=== PATIENT | female | born 1955 | race Caucasian/White ===

== ENCOUNTER 2017-01-06 07:13 | Day surgery (SDC) | payer BC ==
[2017-01-01 15:16] VITALS: BMI 33.3
[~2017-01-06 07:13] MED LIST: LACTATED RINGERS 1,000 ML IV SCH
[2017-01-06 07:53] VITALS: RESP 16; TEMP 98.3
[2017-01-06] MEDS ORDERED: MIDAZOLAM 2 MG/2 ML VIAL ONE (08:02)
[2017-01-06] MEDS ORDERED: PROPOFOL 10 MG/ML 20 ML VIAL IV ONE (08:02)
[2017-01-06] MEDS ORDERED: LIDOCAINE 1% INJ 10MG/ML (20 ML MDV) ONE (08:02)
[2017-01-06] MEDS ORDERED: fentaNYL (PF) 50 MCG/ML 2 ML AMP ONE (08:02)
--- NOTE | 2017-01-06 08:28 | P.PCN ---
Date of Procedure: 01/06/17 Preoperative Diagnosis: Postoperative Diagnosis: Procedure(s) Performed: Brief history: Patient is a pleasant 61-year-old white female, scheduled for an elective upper endoscopy as well as colonoscopy as a part of evaluation of long-standing history of GERD and intermittent rectal bleeding. Procedure performed: Esophagogastroduodenoscopy with biopsy Colonoscopy Preoperative diagnosis: GERD Intermittent rectal bleeding Anesthesia: MAC Procedure: After informed consent was obtained from the patient was brought into the endoscopy unit and IV sedation was administered by anesthesia under continuous monitoring. Initially upper endoscopy was done. The Olympus GF 160 video endoscope was inserted inserted into the mouth and esophagus intubated without any difficulty and was gradually advanced into the stomach and duodenum and carefully examined. The bulb and second part of the duodenum appeared normal. The scope was then withdrawn into the stomach adequately insufflated with air and upon careful examination the antrum had mild gastritis and biopsies were done from this area. The body, cardia and fundus appeared normal. The scope was then withdrawn into the esophagus. Small sliding Hiatal hernia noted. The GE junction was located at 38 cm to the incisors. It appeared regular with 2 superficial erosions consistent with LA grade B reflux esophagitis. Also there was a 1 mm segment of Varner's-appearing mucosa which was also biopsied. Rest of the esophagus appeared normal. Patient tolerated the procedure well. At this time the patient continued to remain sedation. Initial digital rectal examination was normal. Olympus CF 160 video colonoscope was then inserted into the rectum and gradually advanced to the cecum without any difficulty. Careful examination was performed as the scope was gradually being withdrawn. The prep was excellent. The cecum, ascending colon, transverse colon, descending colon, sigmoid colon and rectum appeared normal. Retroflexion was performed in the rectum and small internal hemorrhoids were noted. Patient tolerated the procedure well. Impression: 1. Upper endoscopy revealed mild antral gastritis, small hiatal hernia and LA grade B reflux esophagitis. Questionable short segment Varner's esophagus status post biopsy 2. Colonoscopy revealed small internal hemorrhoids. No evidence of colorectal neoplasia. Recommendations: Findings of this examination were discussed with the patient as well as her family. She was advised to follow with the biopsy results. If the biopsy confirms the presence of Varner's esophagus then she can have a repeat upper endoscopy in 2 years. In the meantime she will continue with her current acid suppressive therapy and follow antireflux measures. She was advised to have a repeat screening colonoscopy in 10 years. Implants: Indications for Procedure: Operative Findings: Description of Procedure:
[2017-01-06 09:06] VITALS: BP 124/69; PULSE 64
== END 2017-01-06 09:17 | disposition home or self-care (01) ==
LOC: ORWHC2ENDO 07:13
PROVIDERS: ATTEND Internal Medicine Gastroenterology
DX: K29.50 Unspecified chronic gastritis without bleeding (principal); K21.0 Gastro-esophageal reflux disease with esophagitis; K44.9 Diaphragmatic hernia without obstruction or gangrene; K64.8 Other hemorrhoids; K92.1 Melena; Z79.899 Other long term (current) drug therapy; Z79.84 Long term (current) use of oral hypoglycemic drugs
CPT/HCPCS: 88305; 88342; 45378; 43239; J2250; J2001; J3010; J2704

== ENCOUNTER → 2018-01-04 | Outpatient (CLI) | payer BC ==
[2018-01-04 08:01] LABS: Anisocytosis Slight; Basophils % (A) 1 %; Eosinophils # (A) 0.1 k/uL (0-0.7); Eosinophils % (A) 2 %; HCT 34.9 % (34.0-46.0); HGB 11.4 gm/dL (11.4-16.0); Hypochromasia Slight; Lymphocytes # (A) 1.7 k/uL (1.0-4.8); Lymphocytes % (A) 44 %; MCH 32.4 pg (25.0-35.0); MCHC 32.8 g/dL (31.0-37.0); Macrocytosis Slight; Mean Platelet Volume 6.7; Monocytes # (A) 0.2 k/uL (0-1.0); Monocytes % (A) 4 %; Neutrophils # (A) 1.8 k/uL (1.3-7.7); Neutrophils % (A) 47 %; Poikilocytosis Slight; RBC 3.53 m/uL (3.80-5.40); RDW 18.8 % (11.5-15.5); WBC 3.9 k/uL (3.8-10.6)
[2018-01-04 08:08] LABS: MCV 98.7 fL (80.0-100.0); Platelet Count 417 k/uL (150-450)
[2018-01-04 08:16] LABS: Anion Gap 11 mmol/L; Blood Urea Nitrogen 20 mg/dL (7-17); Calcium 9.7 mg/dL (8.4-10.2); Carbon Dioxide 30 mmol/L (22-30); Chloride 99 mmol/L (98-107); Glucose 108 mg/dL (74-99); Magnesium 1.7 mg/dL (1.6-2.3); Potassium 4.3 mmol/L (3.5-5.1); Sodium 140 mmol/L (137-145)
[2018-01-04 11:13] LABS: ALT 27 U/L (9-52); AST 22 U/L (14-36); Albumin 4.1 g/dL (3.5-5.0); Alkaline Phosphatase 80 U/L (38-126); Total Bilirubin 0.2 mg/dL (0.2-1.3); Total Protein 6.8 g/dL (6.3-8.2)
== END | disposition home or self-care (01) ==
LOC: LABWHC1 07:35
PROVIDERS: ATTEND Obstetrics & Gynecology
DX: C48.1 Malignant neoplasm of specified parts of peritoneum (principal)
CPT/HCPCS: 36415; 80053; 83735; 85025

== ENCOUNTER → 2020-02-06 | Outpatient (CLI) | payer MEDICARE, BC ==
[2020-02-06 13:13] LABS: Basophils % (A) 0 %; Eosinophils # (A) 0.1 k/uL (0-0.7); Eosinophils % (A) 3 %; HCT 35.9 % (34.0-46.0); HGB 11.8 gm/dL (11.4-16.0); Lymphocytes # (A) 1.8 k/uL (1.0-4.8); Lymphocytes % (A) 38 %; MCH 33.7 pg (25.0-35.0); MCHC 32.8 g/dL (31.0-37.0); MCV 102.7 fL (80.0-100.0); Macrocytosis Slight; Mean Platelet Volume 7.3; Monocytes # (A) 0.2 k/uL (0-1.0); Monocytes % (A) 4 %; Neutrophils # (A) 2.5 k/uL (1.3-7.7); Neutrophils % (A) 52 %; Platelet Count 238 k/uL (150-450); RBC 3.49 m/uL (3.80-5.40); RDW 15.2 % (11.5-15.5); WBC 4.8 k/uL (3.8-10.6)
[2020-02-06 20:07] LABS: African American GFR (CKD) 68.5 (60.0-200.0); Albumin 4.2 g/dL (3.80-4.90); Calcium 9.2 mg/dL (8.7-10.3); Globulin 2.1 g/dL (1.6-3.3); Magnesium 1.7 mg/dL (1.5-2.4); Non-African American GFR(CKD) 59.1 (60.0-200.0); Potassium 4.6 mmol/L (3.5-5.5); Total Bilirubin 0.5 mg/dL (0.3-1.2); Total Protein 6.3 g/dL (6.2-8.2)
[2020-02-06 20:44] LABS: Cancer Antigen 125 4.5 U/mL (0.0-30.1)
== END | disposition home or self-care (01) ==
LOC: LABWHC1 11:47
PROVIDERS: ATTEND Obstetrics & Gynecology
DX: C48.2 Malignant neoplasm of peritoneum, unspecified (principal)
CPT/HCPCS: 36415; 80053; 83735; 85025; 86304

== ENCOUNTER → 2020-05-20 | Outpatient (CLI) | payer MEDICARE, BC ==
[2020-05-20 12:45] LABS: Basophils % (A) 0 %; Eosinophils # (A) 0.1 k/uL (0-0.7); Eosinophils % (A) 3 %; HCT 35.6 % (34.0-46.0); HGB 11.7 gm/dL (11.4-16.0); Lymphocytes # (A) 2.1 k/uL (1.0-4.8); Lymphocytes % (A) 37 %; MCH 32.9 pg (25.0-35.0); MCHC 32.9 g/dL (31.0-37.0); MCV 99.9 fL (80.0-100.0); Macrocytosis Slight; Monocytes # (A) 0.3 k/uL (0-1.0); Monocytes % (A) 5 %; Neutrophils # (A) 2.9 k/uL (1.3-7.7); Neutrophils % (A) 53 %; Platelet Count 271 k/uL (150-450); RBC 3.56 m/uL (3.80-5.40); RDW 14.9 % (11.5-15.5); WBC 5.6 k/uL (3.8-10.6)
[2020-05-20 21:22] LABS: Albumin 4.2 g/dL (3.80-4.90); Calcium 9.2 mg/dL (8.7-10.3); Globulin 2.1 g/dL (1.6-3.3); Magnesium 1.7 mg/dL (1.5-2.4); Non-African American GFR(CKD) 58.7 (60.0-200.0); Potassium 4.3 mmol/L (3.5-5.5); Total Bilirubin 0.5 mg/dL (0.2-1.2); Total Protein 6.3 g/dL (6.2-8.2)
[2020-05-20 21:58] LABS: Cancer Antigen 125 5.2 U/mL (0.0-30.1)
== END | disposition home or self-care (01) ==
LOC: LABWHC1 11:50
PROVIDERS: ATTEND Obstetrics & Gynecology
DX: C56.1 Malignant neoplasm of right ovary (principal)
CPT/HCPCS: 36415; 80053; 83735; 85025; 86304

== ENCOUNTER → 2020-10-28 | Outpatient (CLI) | payer MEDICARE, BC | END | disposition home or self-care (01) | LOC: LABWHC1 16:09 | PROVIDERS: ATTEND Internal Medicine | DX: U07.1 COVID-19 (principal) | CPT/HCPCS: U0003; U0005 ==

== ENCOUNTER 2020-10-30 12:06 | Inpatient (IN) | payer MEDICARE, BC ==
[2020-10-30] MEDS ORDERED: SODIUM CHLORIDE 0.9% 1,000 ML IV STA ×2 (12:38)
--- NOTE | 2020-10-30 12:50 | ED ---
General Adult HPI - General Chief complaint: Nausea/Vomiting/Diarrhea Stated complaint: Covid+/weakness Time Seen by Provider: 10/30/20 12:17 Source: patient, family Mode of arrival: wheelchair Limitations: no limitations - History of Present Illness Initial comments: 65-year-old female with past medical history of peritoneal cancer in remission, A. fib, hypertension who presents to the emergency department with reported weakness and decreased hearing. Daughter is at bedside and helps provide the history. States that her mother began having symptoms on October 19. She did follow-up on Wednesday the and was diagnosed with Covid. She has been suff ering from myalgias, poor appetite, vomiting and diarrhea. Dr. Roy gave her prescription for Zofran however she continues to have a poor appetite. Patient has continued to take her metformin and hydrochlorothiazide. There is concern that she may be dehydrated at this time. Denies chest pain or shortness of breath. Patient had a mild cough which resolved. Denies any abdominal pain. No changes in her urination to include dysuria, hematuria or difficulty voiding. Decreased bowel movements secondary to decreased intake. No headaches or visual changes. Does report decreased hearing in both the ears. No other alleviating, precipitating or modifying factors - Related Data Home Medications Medication Instructions Recorded Confirmed Potassium Chloride [Klor-Con 20 meq PO DAILY 01/01/17 10/30/20 Packets] metFORMIN HCL 1,000 mg PO BID 01/01/17 10/30/20 Bovine Thyroid Health 130mg 1 - 2 tab PO DAILY 10/30/20 10/30/20 Cholecalciferol (Vitamin D3) 125 mcg PO DAILY 10/30/20 10/30/20 [Vitamin D3 (5000 Iu)] Docusate Sodium [Dok] 200 mg PO BID PRN 10/30/20 10/30/20 Famotidine [Pepcid] 40 mg PO BID-W/MEALS 10/30/20 10/30/20 Magnesium Malate 625mg 1 tab PO DAILY 10/30/20 10/30/20 Multivitamins, Thera [Multivitamin 1 tab PO DAILY 10/30/20 10/30/20 (formulary)] Olaparib [Lynparza] 300 mg PO BID 10/30/20 10/30/20 Ondansetron HCl [Zofran] 4 mg PO Q6H PRN 10/30/20 10/30/20 Rivaroxaban [Xarelto] 20 mg PO DAILY 10/30/20 10/30/20 polyethylene glycoL 3350 [Miralax] 17 gm PO DAILY PRN 10/30/20 10/30/20 Previous Rx's Medication Instructions Recorded Acetaminophen Tab [Tylenol] 650 mg PO Q4HR PRN tab 11/01/20 Ascorbic Acid [Vitamin C] 500 mg PO BID 30 Days #30 tab 11/01/20 Dexamethasone 6 mg PO DAILY 8 Days #8 tablet 11/01/20 Magnesium Oxide [Mag-Ox] 400 mg PO DAILY tab 11/01/20 Propranolol [Inderal] 40 mg PO DAILY tab 11/01/20 Zinc Sulfate [Orazinc] 220 mg PO DAILY 30 Days #30 cap 11/01/20 hydroCHLOROthiazide [Hydrodiuril] 25 mg PO DAILY tab 11/01/20 Allergies Allergy/AdvReac Type Severity Reaction Status Date / Time No Known Allergies Allergy Verified 10/30/20 14:56 Review of Systems ROS Statement: Those systems with pertinent positive or pertinent negative responses have been documented in the HPI. ROS Other: All systems not noted in ROS Statement are negative. Past Medical History Past Medical History: Cancer, GERD/Reflux Additional Past Medical History / Comment(s): BRCA1+, hx of polyps, ? dugan's, blood in stool, stage four peritoneal cancer in remission, History of Any Multi-Drug Resistant Organisms: None Reported Past Surgical History: Cholecystectomy, Hysterectomy Additional Past Surgical History / Comment(s): debulking sx, bilateral mastectomy, nasal surgery, mult. bx, Additional Past Anesthesia/Blood Transfusion Reaction / Comment(s): elevated heart rate in past post-op Past Psychological History: No Psychological Hx Reported Smoking Status: Never smoker Past Alcohol Use History: None Reported Past Drug Use History: None Reported - Past Family History Sister(s) Family Medical History: Cancer Additional Family Medical History / Comment(s): breast Brother(s) Family Medical History: Cancer Additional Family Medical History / Comment(s): prostate, melanoma General Exam Limitations: no limitations General appearance: alert, in no apparent distress Head exam: Present: atraumatic, normocephalic, normal inspection Eye exam: Present: normal appearance, PERRL, EOMI. Absent: scleral icterus, conjunctival injection, periorbital swelling ENT exam: Present: normal exam, mucous membranes dry Neck exam: Present: normal inspection. Absent: tenderness, meningismus, lymphadenopathy Respiratory exam: Present: normal lung sounds bilaterally. Absent: respiratory distress, wheezes, rales, rhonchi, stridor Cardiovascular Exam: Present: regular rate, normal rhythm, normal heart sounds. Absent: systolic murmur, diastolic murmur, rubs, gallop, clicks GI/Abdominal exam: Present: soft, normal bowel sounds. Absent: distended, tenderness, guarding, rebound, rigid Extremities exam: Present: normal inspection, full ROM, normal capillary refill, pedal edema (1+). Absent: tenderness, joint swelling, calf tenderness Back exam: Present: normal inspection Neurological exam: Present: alert, oriented X3, CN II-XII intact Psychiatric exam: Present: normal affect, normal mood Skin exam: Present: warm, dry, intact, normal color. Absent: rash Course Vital Signs 10/30/20 10/30/20 10/30/20 12:09 14:45 16:00 Temperature 99.1 F 100.6 F H Pulse Rate 69 89 75 Respiratory 18 20 18 Rate Blood Pressure 107/62 110/63 131/71 O2 Sat by Pulse 95 91 L 96 Oximetry 10/30/20 10/30/20 10/30/20 17:22 19:00 19:36 Temperature Pulse Rate 73 75 78 Respiratory 18 16 16 Rate Blood Pressure 119/62 129/61 138/58 O2 Sat by Pulse 97 94 L 92 L Oximetry 10/30/20 10/31/20 10/31/20 22:00 00:25 04:00 Temperature 102.3 F H 100.8 F H Pulse Rate 70 67 71 Respiratory 16 16 17 Rate Blood Pressure 121/60 116/62 114/61 O2 Sat by Pulse 94 L 94 L 98 Oximetry 10/31/20 10/31/20 10/31/20 07:33 15:00 20:46 Temperature 97.1 F L Pulse Rate 70 78 79 Respiratory 18 18 18 Rate Blood Pressure 111/67 138/78 139/68 O2 Sat by Pulse 95 98 97 Oximetry EKG Findings - EKG Comments: EKG Findings:: EKG demonstrates sinus rhythm with PACs. Rate of 74. SD interval 150. QRS 80. QTC 457. No acute ST segment elevations or depressions Medical Decision Making - Medical Decision Making Upon arrival patient is placed into room 19. A thorough history and physical exam is performed. 12-lead EKG performed. IV is established the patient is given a liter bolus of normal saline followed by 100 per hour. Laboratory studies are conducted. Review of the labs demonstrates that her sodium is 121. Urinalysis is positive for moderate bacteria. Blood cultures obtained and the patient is given a dose of Rocephin. Patient continued on 100 mL of normal saline per hour. Did recommend admission. We'll trend the patient's BNP every 6 hours. Patient remained in stable condition awaiting a bed on the floor - Lab Data Result diagrams: 10/31/20 05:30 10/31/20 05:30 Lab Results 10/30/20 10/30/20 10/30/20 Range/Units 12:56 12:56 12:56 WBC 2.8 L (3.8-10.6) k/uL RBC 3.38 L (3.80-5.40) m/uL Hgb 11.7 (11.4-16.0) gm/dL Hct 32.5 L (34.0-46.0) % MCV 96.2 (80.0-100.0) fL MCH 34.7 (25.0-35.0) pg MCHC 36.1 (31.0-37.0) g/dL RDW 14.4 (11.5-15.5) % Plt Count 200 (150-450) k/uL MPV 7.2 Neutrophils % 75 % Lymphocytes % 20 % Monocytes % 2 % Eosinophils % 1 % Basophils % 0 % Neutrophils # 2.1 (1.3-7.7) k/uL Lymphocytes # 0.6 L (1.0-4.8) k/uL Monocytes # 0.1 (0-1.0) k/uL Eosinophils # 0.0 (0-0.7) k/uL Basophils # 0.0 (0-0.2) k/uL Sodium 121 L (137-145) mmol/L Potassium 3.5 (3.5-5.1) mmol/L Chloride 86 L (98-107) mmol/L Carbon Dioxide 25 (22-30) mmol/L Anion Gap 10 mmol/L BUN 20 H (7-17) mg/dL Creatinine 0.74 (0.52-1.04) mg/dL Est GFR (CKD-EPI)AfAm >90 (>60 ml/min/1.73 sqM) Est GFR (CKD-EPI)NonAf 85 (>60 ml/min/1.73 sqM) Glucose 116 H (74-99) mg/dL Plasma Lactic Acid Domenic (0.7-2.0) mmol/L Calcium 8.3 L (8.4-10.2) mg/dL Total Bilirubin 0.5 (0.2-1.3) mg/dL AST 40 H (14-36) U/L ALT 23 (4-34) U/L Alkaline Phosphatase 49 (38-126) U/L Creatine Kinase 64 (30-135) U/L Troponin I (0.000-0.034) ng/mL Total Protein 6.2 L (6.3-8.2) g/dL Albumin 3.7 (3.5-5.0) g/dL Lipase 330 H (23-300) U/L TSH 0.665 (0.465-4.680) mIU/L Urine Color Light Yellow Urine Appearance Clear (Clear) Urine pH 6.0 (5.0-8.0) Ur Specific [place] 1.011 (1.001-1.035) Urine Protein Trace H (Negative) Urine Glucose (UA) Negative (Negative) Urine Ketones 1+ H (Negative) Urine Blood Negative (Negative) Urine Nitrite Negative (Negative) Urine Bilirubin Negative (Negative) Urine Urobilinogen <2.0 (<2.0) mg/dL Ur Leukocyte Esterase Trace H (Negative) Urine WBC 8 H (0-5) /hpf Ur Squamous Epith Cells 1 (0-4) /hpf Urine Bacteria Moderate H (None) /hpf Urine Mucus Rare H (None) /hpf 10/30/20 10/30/20 Range/Units 12:56 12:56 WBC (3.8-10.6) k/uL RBC (3.80-5.40) m/uL Hgb (11.4-16.0) gm/dL Hct (34.0-46.0) % MCV (80.0-100.0) fL MCH (25.0-35.0) pg MCHC (31.0-37.0) g/dL RDW (11.5-15.5) % Plt Count (150-450) k/uL MPV Neutrophils % % Lymphocytes % % Monocytes % % Eosinophils % % Basophils % % Neutrophils # (1.3-7.7) k/uL Lymphocytes # (1.0-4.8) k/uL Monocytes # (0-1.0) k/uL Eosinophils # (0-0.7) k/uL Basophils # (0-0.2) k/uL Sodium (137-145) mmol/L Potassium (3.5-5.1) mmol/L Chloride (98-107) mmol/L Carbon Dioxide (22-30) mmol/L Anion Gap mmol/L BUN (7-17) mg/dL Creatinine (0.52-1.04) mg/dL Est GFR (CKD-EPI)AfAm (>60 ml/min/1.73 sqM) Est GFR (CKD-EPI)NonAf (>60 ml/min/1.73 sqM) Glucose (74-99) mg/dL Plasma Lactic Acid Domenic 1.1 (0.7-2.0) mmol/L Calcium (8.4-10.2) mg/dL Total Bilirubin (0.2-1.3) mg/dL AST (14-36) U/L ALT (4-34) U/L Alkaline Phosphatase (38-126) U/L Creatine Kinase (30-135) U/L Troponin I <0.012 (0.000-0.034) ng/mL Total Protein (6.3-8.2) g/dL Albumin (3.5-5.0) g/dL Lipase (23-300) U/L TSH (0.465-4.680) mIU/L Urine Color Urine Appearance (Clear) Urine pH (5.0-8.0) Ur Specific [place] (1.001-1.035) Urine Protein (Negative) Urine Glucose (UA) (Negative) Urine Ketones (Negative) Urine Blood (Negative) Urine Nitrite (Negative) Urine Bilirubin (Negative) Urine Urobilinogen (<2.0) mg/dL Ur Leukocyte Esterase (Negative) Urine WBC (0-5) /hpf Ur Squamous Epith Cells (0-4) /hpf Urine Bacteria (None) /hpf Urine Mucus (None) /hpf Disposition Clinical Impression: COVID-19, Hyponatremia, Dehydration, Nausea and vomiting Disposition: ADMITTED IP TO THIS HOSP Condition: Stable Is patient prescribed a controlled substance at d/c from ED?: No Decision to Admit Reason: Admit from EC Decision Date: 10/30/20 Decision Time: 14:11
[2020-10-30 13:18] LABS: Basophils % (A) 0 %; Eosinophils % (A) 1 %; HCT 32.5 % (34.0-46.0); HGB 11.7 gm/dL (11.4-16.0); Lymphocytes # (A) 0.6 k/uL (1.0-4.8); Lymphocytes % (A) 20 %; MCH 34.7 pg (25.0-35.0); MCHC 36.1 g/dL (31.0-37.0); MCV 96.2 fL (80.0-100.0); Mean Platelet Volume 7.2; Monocytes # (A) 0.1 k/uL (0-1.0); Monocytes % (A) 2 %; Neutrophils # (A) 2.1 k/uL (1.3-7.7); Neutrophils % (A) 75 %; Platelet Count 200 k/uL (150-450); RBC 3.38 m/uL (3.80-5.40); RDW 14.4 % (11.5-15.5); WBC 2.8 k/uL (3.8-10.6)
[2020-10-30 13:36] LABS: Appearance,Urine Clear (Clear); Bacteria,Urine Moderate /hpf; Bilirubin,Urine Negative (Negative); Blood,Urine Negative (Negative); Color,Urine Light Yellow; Glucose,Urine (UA) Negative (Negative); Ketones,Urine 1+ (Negative); Leukocyte Esterase,Urine Trace (Negative); Mucus,Urine Rare /hpf; Nitrite,Urine Negative (Negative); Protein,Urine Trace (Negative); Specific Gravity,Urine 1.011 (1.001-1.035); Squamous Epithelial Cell,Urine 1 /hpf (0-4); Urobilinogen,Urine <2.0 mg/dL (<2.0); WBC,Urine 8 /hpf (0-5)
[2020-10-30 13:37] LABS: ALT 23 U/L (4-34); AST 40 U/L (14-36); African American GFR (CKD) >90 (>60 ml/min/1.73 sqM); Albumin 3.7 g/dL (3.5-5.0); Alkaline Phosphatase 49 U/L (38-126); Anion Gap 10 mmol/L; Blood Urea Nitrogen 20 mg/dL (7-17); Calcium 8.3 mg/dL (8.4-10.2); Carbon Dioxide 25 mmol/L (22-30); Chloride 86 mmol/L (98-107); Creatine Kinase 64 U/L (30-135); Glucose 116 mg/dL (74-99); Lipase 330 U/L (23-300); Non-African American GFR(CKD) 85 (>60 ml/min/1.73 sqM); Potassium 3.5 mmol/L (3.5-5.1); Sodium 121 mmol/L (137-145); Total Bilirubin 0.5 mg/dL (0.2-1.3); Total Protein 6.2 g/dL (6.3-8.2)
[2020-10-30] MEDS ORDERED: cefTRIAXone IN SWFI 1,000 MG/10 ML SYRINGE IVP STA (13:54)
[2020-10-30] MEDS ORDERED: NALOXONE 0.4 MG/ML 1 ML VIAL IV PRN (14:12)
[2020-10-30] MEDS ORDERED: ONDANSETRON 4 MG/2 ML VIAL IVP PRN (16:36)
--- NOTE | 2020-10-30 16:40 | P.HPIM ---
History of Present Illness Patient is pleasant 65-year-old female came in with complaints of multiple episodes of nausea vomiting and fever patient was diagnosed with covid 19, recently patient's symptoms started on October 19. Patient was having some mild cough and mild shortness of breath beyond which patient the symptoms are mostly gastrointestinal, including nausea vomiting and diarrhea. 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 She denied any dysuria. Patient is on anticoagulation at home with Xarelto which I'm assuming for DVT although need to verify from the patient. Review of Systems REVIEW OF SYSTEMS: CONSTITUTIONAL: As mentioned in HPI HEENT: No recent visual problems or hearing problems. Denied any sore throat. CARDIOVASCULAR: No chest pain, orthopnea, PND, no palpitations, no syncope. PULMONARY: no hemoptysis. GASTROINTESTINAL: As mentioned in HPI NEUROLOGICAL: No headaches, no weakness, no numbness. HEMATOLOGICAL: Denies any bleeding or petechiae. GENITOURINARY: Denies any burning micturition, frequency, or urgency. MUSCULOSKELETAL/RHEUMATOLOGICAL: Denies any joint pain, swelling, or any muscle pain. ENDOCRINE: Denies any polyuria or polydipsia. The rest of the 14-point review of systems is negative. Past Medical History Past Medical History: Cancer, GERD/Reflux Additional Past Medical History / Comment(s): BRCA1+, hx of polyps, ? dugan's, blood in stool, stage four peritoneal cancer in remission, History of Any Multi-Drug Resistant Organisms: None Reported Past Surgical History: Cholecystectomy, Hysterectomy Additional Past Surgical History / Comment(s): debulking sx, bilateral mastectomy, nasal surgery, mult. bx, Additional Past Anesthesia/Blood Transfusion Reaction / Comment(s): elevated heart rate in past post-op Past Psychological History: No Psychological Hx Reported Smoking Status: Never smoker Past Alcohol Use History: None Reported Past Drug Use History: None Reported - Past Family History Sister(s) Family Medical History: Cancer Additional Family Medical History / Comment(s): breast Brother(s) Family Medical History: Cancer Additional Family Medical History / Comment(s): prostate, melanoma Medications and Allergies Home Medications Medication Instructions Recorded Confirmed Type Potassium Chloride [Klor-Con] 20 meq PO DAILY 01/01/17 10/30/20 History metFORMIN HCL 1,000 mg PO BID 01/01/17 10/30/20 History Bovine Thyroid Health 130mg 1 - 2 tab PO DAILY 10/30/20 10/30/20 History Cholecalciferol (Vitamin D3) 125 mcg PO DAILY 10/30/20 10/30/20 History [Vitamin D3 (5000 Iu)] Docusate Sodium [Dok] 200 mg PO BID PRN 10/30/20 10/30/20 History Famotidine [Pepcid] 40 mg PO BID-W/MEALS 10/30/20 10/30/20 History Magnesium Malate 625mg 1 tab PO DAILY 10/30/20 10/30/20 History Multivitamins, Thera [Multivitamin 1 tab PO DAILY 10/30/20 10/30/20 History (formulary)] Olaparib [Lynparza] 300 mg PO BID 10/30/20 10/30/20 History Ondansetron HCl [Zofran] 4 mg PO Q6H PRN 10/30/20 10/30/20 History Rivaroxaban [Xarelto] 20 mg PO DAILY 10/30/20 10/30/20 History polyethylene glycoL 3350 [Miralax] 17 gm PO DAILY PRN 10/30/20 10/30/20 History Allergies Allergy/AdvReac Type Severity Reaction Status Date / Time No Known Allergies Allergy Verified 10/30/20 14:56 Physical Exam Vitals: Vital Signs Temp Pulse Resp BP Pulse Ox 10/30/20 14:45 100.6 F H 89 20 110/63 91 L 10/30/20 12:09 99.1 F 69 18 107/62 95 Intake and Output 10/30/20 10/30/20 10/30/20 06:59 14:59 22:59 Other: Weight 90.718 kg PHYSICAL EXAMINATION: GENERAL: The patient is alert and oriented x3, not in any acute distress but appears to be tired. Well developed, well nourished. HEENT: Pupils are round and equally reacting to light. EOMI. No scleral icterus. No conjunctival pallor. Normocephalic, atraumatic. No pharyngeal erythema. No thyromegaly. CARDIOVASCULAR: S1 and S2 present. No murmurs, rubs, or gallops. PULMONARY: Chest is clear to auscultation, no wheezing or crackles. ABDOMEN: Soft, nontender, nondistended, normoactive bowel sounds. No palpable organomegaly. MUSCULOSKELETAL: No joint swelling or deformity. EXTREMITIES: No cyanosis, clubbing, or pedal edema. NEUROLOGICAL: Gross neurological examination did not reveal any focal deficits. SKIN: No rashes. Results CBC & Chem 7: 10/30/20 12:56 10/30/20 12:56 Labs: Abnormal Lab Results - Last 24 Hours (Table) 10/30/20 10/30/20 10/30/20 Range/Units 12:56 12:56 12:56 WBC 2.8 L (3.8-10.6) k/uL RBC 3.38 L (3.80-5.40) m/uL Hct 32.5 L (34.0-46.0) % Lymphocytes # 0.6 L (1.0-4.8) k/uL Sodium 121 L (137-145) mmol/L Chloride 86 L (98-107) mmol/L BUN 20 H (7-17) mg/dL Glucose 116 H (74-99) mg/dL Calcium 8.3 L (8.4-10.2) mg/dL AST 40 H (14-36) U/L Total Protein 6.2 L (6.3-8.2) g/dL Lipase 330 H (23-300) U/L Urine Protein Trace H (Negative) Urine Ketones 1+ H (Negative) Ur Leukocyte Esterase Trace H (Negative) Urine WBC 8 H (0-5) /hpf Urine Bacteria Moderate H (None) /hpf Urine Mucus Rare H (None) /hpf Coronavirus (PCR) (Not Detectd) 10/30/20 Range/Units 14:23 WBC (3.8-10.6) k/uL RBC (3.80-5.40) m/uL Hct (34.0-46.0) % Lymphocytes # (1.0-4.8) k/uL Sodium (137-145) mmol/L Chloride (98-107) mmol/L BUN (7-17) mg/dL Glucose (74-99) mg/dL Calcium (8.4-10.2) mg/dL AST (14-36) U/L Total Protein (6.3-8.2) g/dL Lipase (23-300) U/L Urine Protein (Negative) Urine Ketones (Negative) Ur Leukocyte Esterase (Negative) Urine WBC (0-5) /hpf Urine Bacteria (None) /hpf Urine Mucus (None) /hpf Coronavirus (PCR) Detected A (Not Detectd) Assessment and Plan Plan: Covid 19 infection: Patient nausea vomiting are probably secondary to gastritis secondary to Covid 19 infection patient will be started on Covid vitamins unsure whether patient will need systemic steroids constricting her diabetes mellitus patient not be started on any systemic steroids, infectious disease will be consulted. Patient respiratory status although fairly well. Sectioning at 91% on room air. Patient is presently wearing oxygen for comfort. Patient is on an ti-correlation at home which will be continued. Patient will be started on Pepcid. -Hypovolemic hyponatremia from nausea vomiting leading to generalized weakness patient was started and continued on IV fluids. -Type 2 diabetes mellitus: Metformin will be held temporally secondary to diarrhea patient will be on sliding scale insulin -Asymptomatic bacteriuria will not require any antibiotics -History of primary peritoneal cancer: Patient's maintenance limpraza as a will be held temporarily.
--- NOTE | 2020-10-30 17:01 | XR ---
EXAMINATION TYPE: XR chest 2V DATE OF EXAM: 10/30/2020 COMPARISON: 06/21/2010 HISTORY: Pneumonia. Weakness. TECHNIQUE: 2 views FINDINGS: Heart is normal. There are surgical clips over both axilla. The lungs are clear of consolid ation. There is small area of subsegmental atelectasis left lung base. There are chest leads. There a re no hilar masses. There is no heart failure. IMPRESSION: Minimal subsegmental atelectasis left lung base. Normal heart.
[2020-10-30] MEDS: FAMOTIDINE 20 MG TAB PO SCH (19:31)
[2020-10-30] MEDS ORDERED: ACETAMINOPHEN TAB 325 MG TAB PO PRN (22:21)
[2020-10-30] MEDS: ASCORBIC ACID 500 MG TAB PO SCH (23:07)
[2020-10-30] MEDS: INSULIN ASPART (NovoLOG) 100 UNIT/ML VIAL SQ SCH (23:11)
[2020-10-30 23:13] LABS: Glucose,Whole Blood 113 mg/dL (75-99)
[2020-10-30] MEDS ORDERED: DEXAMETHASONE SOD PHOSPHATE 10 MG/ML 1 ML VIAL IV SCH (23:15)
[2020-10-31] MEDS ORDERED: REMDESIVIR 200 MG in SODIUM CHLORIDE 0.9% 250 ML IVPB ONE ×2
[2020-10-31] MEDS: SODIUM CHLORIDE 0.9% 1,000 ML IV SCH ×4 (00:20→20:42)
[2020-10-31] MEDS: INSULIN ASPART (NovoLOG) 100 UNIT/ML VIAL SQ SCH ×5 (05:31→20:40)
--- NOTE | 2020-10-31 06:56 | CONS ---
CONSULTATION DATE OF SERVICE: 10/30/2020 REASON FOR CONSULTATION: COVID-19 infection. HISTORY OF PRESENT ILLNESS: The patient is a 65-year-old female with a past medical history significant for cancer, currently in remission. This patient has been brought into the hospital for evaluation of nausea, vomiting and generalized weakness. The patient's symptoms have been going on for about a week and on Saturday 10/28 the patient was evaluated by her primary care physician and patient diagnosed with COVID. The patient has been complaining of generalized body aches, decreased appetite, vomiting and diarrhea. No blood or mucus in the stool. Denies any abdominal pain. Complaining of minimal shortness of breath and mild cough but no sputum production. With these symptoms, the patient had evaluation by the ER physician. On arrival to the ER, the patient initially was not running a fever of 99.1 and subsequently spiked a fever of 102.3 degrees Fahrenheit. The patient is currently hypoxic and is 92% on 2 L nasal cannula. The patient did have a leukopenia as well as lymphopenia. Kidney function was normal. AST was elevated at 40. CRP and procalcitonin has not been done. Jose PCR came back positive. Chest x-ray with interstitial infiltrate. The patient has been admitted to the hospital for COVID-19 infection. Infectious Disease was consulted for further management of antibiotic therapy. REVIEW OF SYSTEMS: Positive points have been mentioned in HPI. Rest of systems are negative. PAST MEDICAL HISTORY: cancer, gastroesophageal reflux disease, Varner's esophagus. PAST SURGICAL HISTORY: Cholecystectomy, hysterectomy, bilateral mastectomy. SOCIAL HISTORY: No history of smoking, drinking or drug use. FAMILY HISTORY: Sister with history of breast cancer. Brother with history of prostate cancer and melanoma. ALLERGIES: No known drug allergies. MEDICATIONS: The patient is currently on Tylenol, vitamin C, vitamin D3, Pepcid, NovoLog, Theragran, Narcan, Zofran, Xarelto, IV fluids, zinc sulfate. PHYSICAL EXAMINATION: VITAL SIGNS: Blood pressure 121/60 with a pulse of 70, temperature 102.3, she is 94% on 2 L nasal cannula. GENERAL DESCRIPTION: Patient is an elderly female lying in bed in no distress. No tachypnea or accessory muscles of respiration use. HEENT: Examination shows no pallor or scleral icterus. Oral mucous membrane is dry. NECK: Trachea central, no thyromegaly. LUNGS: Unlabored breathing, coarse breath sounds bilaterally, no wheeze. HEART: S1-S2, regular rate and rhythm. ABDOMEN: Soft, no tenderness. No guarding or rigidity. EXTREMITIES: No edema of the feet. SKIN: No rash or mass palpable. NEUROLOGICAL: Patient is awake, alert, oriented times three. Mood and affect normal. LABS: Hemoglobin 11.6, white count 2.2, creatinine 0.6, AST mildly elevated. Chest x-ray report as mentioned above. DIAGNOSTIC IMPRESSION: Patient admitted to the hospital with generalized body aches, not feeling well. Symptoms have been going on for about a week, diagnosed with COVID-19 on 10/28. With evidence of fever, new lymphopenia, mildly elevated AST, all goes toward acute COVID-19 infection. PLAN: 1. The patient was started on remdesivir per protocol and Decadron 6 mg IV daily. 2. Continue with Xarelto, vitamin C and zinc. 3. Droplet isolation and respiratory support. 4. We will follow on clinical condition and further adjust medication if needed. Thank you for this consultation. Will follow this patient along with you. MMODL / IJN: [id number] /
[2020-10-31 07:33] LABS: Glucose,Whole Blood 178 mg/dL (75-99)
[2020-10-31] MEDS: ZINC SULFATE 220 MG CAP PO SCH (08:00)
[2020-10-31] MEDS: MULTIVITAMINS, THERA 1 EACH TAB PO SCH (08:00)
[2020-10-31] MEDS: ASCORBIC ACID 500 MG TAB PO SCH ×2 (08:00→22:52)
[2020-10-31] MEDS: CHOLECALCIFEROL 25 MCG (1000 IU) TABLET PO SCH (08:00)
[2020-10-31] MEDS: FAMOTIDINE 20 MG TAB PO SCH ×2 (08:01→20:42)
--- NOTE | 2020-10-31 08:20 | XR ---
EXAMINATION TYPE: XR chest 1V portable DATE OF EXAM: 10/31/2020 COMPARISON: 10/31/2019 HISTORY: Cough TECHNIQUE: Single frontal view of the chest is obtained. FINDINGS: A coarsened interstitium. Heart size stable with subsegmental changes at the left lung bas e. No pneumothorax. Tiny left pleural effusion suspected. IMPRESSION: 1. Stable left basilar atelectasis or infiltrate. 2. Correlate for COPD and chronic interstitial lung disease otherwise consider interstitial pneumonit is.
[2020-10-31] MEDS: RIVAROXABAN 20 MG TAB PO SCH (08:25)
[2020-10-31 09:36] LABS: HCT 30.8 % (37.2-46.3); HGB 10.9 g/dL (12.0-15.0); MCH 34.4 pg (27.0-32.0); MCHC 35.4 g/dL (32.0-37.0); MCV 97.2 fL (80.0-97.0); Mean Platelet Volume 10.2 fL (9.5-12.2); Platelet Count 199 X 10*3/uL (140-440); RBC 3.17 X 10*6/uL (4.10-5.20); RDW 14.1 % (11.5-14.5)
[2020-10-31 10:09] LABS: African American GFR (CKD) 77.2 (60.0-200.0); Albumin 4.1 g/dL (3.80-4.90); Albumin/Globulin Ratio 2.41 (1.60-3.17); Anion Gap 11.8 mmol/L (4.00-12.00); BUN/Creat Ratio 13.33 Ratio (12.00-20.00); C Reactive Protein 5.3 mg/dL (0.0-0.8); Calcium 8.2 mg/dL (8.7-10.3); Carbon Dioxide 24.2 mmol/L (21.6-31.8); Globulin 1.7 g/dL (1.6-3.3); Non-African American GFR(CKD) 66.6 (60.0-200.0); Potassium 3.4 mmol/L (3.5-5.5); Total Bilirubin 0.3 mg/dL (0.3-1.2); Total Protein 5.8 g/dL (6.2-8.2)
[2020-10-31 10:21] LABS: Basophils # (A) 0 X 10*3/uL (0.00-0.10); Basophils % (A) 0 %; Crenated RBC 2+; Eosinophils # (A) 0 X 10*3/uL (0.04-0.35); Eosinophils % (A) 0 %; Lymphocytes # (A) 0.49 X 10*3/uL (0.90-5.00); Lymphocytes % (A) 27.2 %; Monocytes # (A) 0.05 X 10*3/uL (0.20-1.00); Monocytes % (A) 2.8 %; Neutrophils # (A) 1.26 X 10*3/uL (1.80-7.70)
[2020-10-31] MEDS ORDERED: POTASSIUM CHLORIDE ER 20 MEQ TAB.ER PO STA (11:15)
[2020-10-31 12:40] LABS: Glucose,Whole Blood 134 mg/dL (75-99)
--- NOTE | 2020-10-31 14:26 | P.PN ---
Subjective Patient is pleasant 65-year-old female came in with complaints of multiple episodes of nausea vomiting and fever patient was diagnosed with covid 19, recently patient's symptoms started on October 19. Patient was having some mild cough and mild shortness of breath beyond which patient the symptoms are mostly gastrointestinal, including nausea vomiting and diarrhea. 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 She denied any dysuria. Patient is on anticoagulation at home with Xarelto which I'm assuming for DVT although need to verify from the patient. 10/31/2020 Patient the sodium went up quite past but I believe the first sodium was not accurate and a lab error. We'll cut down the fluids to 75 mL per hour. Patient is presently on Remdesivir. Patient is bit hypoxic today without oxygen. Constitutional: Denied any fatigue denied any fever. Cardio vascular: denied any chest pain, palpitations Gastrointestinal denied any nausea vomiting Pulmonary: Denied any shortness of breath cough Neurologic denied any new focal deficits All inpatient medications were reviewed and appropriate changes in these medications as dictated in the interval history and assessment and plan. Objective - Vital Signs Vital signs: Vital Signs Temp 97.1 F L 10/31/20 07:33 Pulse 70 10/31/20 07:33 Resp 18 10/31/20 07:33 BP 111/67 10/31/20 07:33 Pulse Ox 95 10/31/20 07:33 Intake & Output 10/30/20 10/31/20 10/31/20 18:59 06:59 18:59 Weight 90.718 kg - Exam PHYSICAL EXAMINATION: GENERAL: The patient is alert and oriented x3, not in any acute distress. Well developed, well nourished. HEENT: Pupils are round and equally reacting to light. EOMI. No scleral icterus. No conjunctival pallor. Normocephalic, atraumatic. No pharyngeal erythema. No thyromegaly. CARDIOVASCULAR: S1 and S2 present. No murmurs, rubs, or gallops. PULMONARY: Chest is clear to auscultation, no wheezing or crackles. ABDOMEN: Soft, nontender, nondistended, normoactive bowel sounds. No palpable organomegaly. MUSCULOSKELETAL: No joint swelling or deformity. EXTREMITIES: No cyanosis, clubbing, or pedal edema. NEUROLOGICAL: Gross neurological examination did not reveal any focal deficits. SKIN: No rashes. - Labs CBC & Chem 7: 10/31/20 05:30 10/31/20 05:30 Labs: Abnormal Lab Results - Last 24 Hours (Table) 10/30/20 10/30/20 10/31/20 Range/Units 14:23 23:10 05:30 WBC 1.80 L (4.50-10.00) X 10*3/uL RBC 3.17 L (4.10-5.20) X 10*6/uL Hgb 10.9 L (12.0-15.0) g/dL Hct 30.8 L (37.2-46.3) % MCV 97.2 H (80.0-97.0) fL MCH 34.4 H (27.0-32.0) pg Neutrophils # 1.26 L (1.80-7.70) X 10*3/uL Lymphocytes # 0.49 L (0.90-5.00) X 10*3/uL Monocytes # 0.05 L (0.20-1.00) X 10*3/uL Eosinophils # 0 L (0.04-0.35) X 10*3/uL D-Dimer (<0.60) mg/L FEU Potassium (3.5-5.5) mmol/L Glucose (70-110) mg/dL POC Glucose (mg/dL) 113 H (75-99) mg/dL Calcium (8.7-10.3) mg/dL Lactate Dehydrogenase (120-246) U/L C-Reactive Protein (0.0-0.8) mg/dL Total Protein (6.2-8.2) g/dL Coronavirus (PCR) Detected A (Not Detectd) 10/31/20 10/31/20 10/31/20 Range/Units 05:30 05:30 07:29 WBC (4.50-10.00) X 10*3/uL RBC (4.10-5.20) X 10*6/uL Hgb (12.0-15.0) g/dL Hct (37.2-46.3) % MCV (80.0-97.0) fL MCH (27.0-32.0) pg Neutrophils # (1.80-7.70) X 10*3/uL Lymphocytes # (0.90-5.00) X 10*3/uL Monocytes # (0.20-1.00) X 10*3/uL Eosinophils # (0.04-0.35) X 10*3/uL D-Dimer 0.60 H (<0.60) mg/L FEU Potassium 3.4 L (3.5-5.5) mmol/L Glucose 183 H (70-110) mg/dL POC Glucose (mg/dL) 178 H (75-99) mg/dL Calcium 8.2 L (8.7-10.3) mg/dL Lactate Dehydrogenase 290 H (120-246) U/L C-Reactive Protein 5.3 H (0.0-0.8) mg/dL Total Protein 5.8 L (6.2-8.2) g/dL Coronavirus (PCR) (Not Detectd) 10/31/20 Range/Units 12:39 WBC (4.50-10.00) X 10*3/uL RBC (4.10-5.20) X 10*6/uL Hgb (12.0-15.0) g/dL Hct (37.2-46.3) % MCV (80.0-97.0) fL MCH (27.0-32.0) pg Neutrophils # (1.80-7.70) X 10*3/uL Lymphocytes # (0.90-5.00) X 10*3/uL Monocytes # (0.20-1.00) X 10*3/uL Eosinophils # (0.04-0.35) X 10*3/uL D-Dimer (<0.60) mg/L FEU Potassium (3.5-5.5) mmol/L Glucose (70-110) mg/dL POC Glucose (mg/dL) 134 H (75-99) mg/dL Calcium (8.7-10.3) mg/dL Lactate Dehydrogenase (120-246) U/L C-Reactive Protein (0.0-0.8) mg/dL Total Protein (6.2-8.2) g/dL Coronavirus (PCR) (Not Detectd) Assessment and Plan Plan: Covid 19 infection: Patient nausea vomiting are probably secondary to gastritis secondary to Covid 19 infection patient will be started on Covid vitamins , patient was started on systemic steroids by infectious disease as patient was hypoxic. Patient was also started on Remdesivir. Patient is on anti-coagula tion at home which will be continued. Patient will be started on Pepcid. -Hypovolemic hyponatremia from nausea vomiting leading to generalized weakness patient will be continued continued on IV fluids. Improved now -Type 2 diabetes mellitus: Metformin will be held temporally secondary to diarrhea patient will be on sliding scale insulin -Asymptomatic bacteriuria will not require any antibiotics -History of primary peritoneal cancer: Patient's maintenance limpraza as a will be held temporarily.
[2020-10-31 20:46] LABS: Glucose,Whole Blood 93 mg/dL (75-99)
[2020-10-31] MEDS ORDERED: REMDESIVIR 100 MG in SODIUM CHLORIDE 0.9% 250 ML IVPB SCH (22:00)
[2020-10-31] MEDS ORDERED: DEXAMETHASONE SOD PHOSPHATE 10 MG/ML 1 ML VIAL IV SCH (22:00)
--- NOTE | 2020-10-31 23:19 | PN ---
PROGRESS NOTE DATE OF SERVICE: 10/31/2020 REASON FOR FOLLOWUP: COVID-19 pneumonia. INTERVAL HISTORY: The patient is afebrile this morning. The patient seemed to have been breathing slightly comfortably, still requiring supplemental oxygen. The patient denies having any chest pain. Occasional cough. No nausea, no vomiting, no abdominal pain or diarrhea. PHYSICAL EXAMINATION: Blood pressure 139/68 with a pulse of 69, temperature 97.1. General description is an elderly female lying in bed in no distress. RESPIRATORY SYSTEM: Unlabored breathing with decreased intensity of breath sounds. No wheeze. HEART: S1, S2. Regular rate and rhythm. ABDOMEN: Soft. No tenderness. LABS: Hemoglobin is 10.9, white count 1.87. D-dimer is 0.60. BUN of 12, creatinine 0.9. Inflammatory markers have improved. DIAGNOSTIC IMPRESSION AND PLAN: Patient with acute COVID-19 infection in this patient who seems to have shown a response to current therapeutic regimen of dexamethasone, remdesivir, Xarelto and ascorbic acid; to continue for another 24 hours, and if the patient continues to improve, will hopefully discharge her home in the morning. Continue with supportive care. Plan of care was discussed with the admitting physician. MMGILMAL / IJN: [id number] /
[2020-11-01 08:20] LABS: Glucose,Whole Blood 170 mg/dL (75-99)
[2020-11-01] MEDS: INSULIN ASPART (NovoLOG) 100 UNIT/ML VIAL SQ SCH ×2 (08:42→12:22)
[2020-11-01] MEDS: FAMOTIDINE 20 MG TAB PO SCH (08:43)
[2020-11-01] MEDS: ASCORBIC ACID 500 MG TAB PO SCH (08:43)
[2020-11-01] MEDS: CHOLECALCIFEROL 25 MCG (1000 IU) TABLET PO SCH (08:43)
[2020-11-01] MEDS: MULTIVITAMINS, THERA 1 EACH TAB PO SCH (08:43)
[2020-11-01] MEDS: ZINC SULFATE 220 MG CAP PO SCH (08:57)
[2020-11-01] MEDS: RIVAROXABAN 20 MG TAB PO SCH (08:57)
[2020-11-01 10:02] VITALS: BP 158/77; PULSE 87; RESP 20; TEMP 97.6
[2020-11-01] MEDS ORDERED: POTASSIUM CHLORIDE ER 20 MEQ TAB.ER PO SCH (10:15)
[2020-11-01] MEDS ORDERED: PROPRANOLOL 40 MG TAB PO SCH (10:15)
[2020-11-01] MEDS ORDERED: hydroCHLOROthiazide 25 MG TAB PO SCH (10:15)
[2020-11-01] MEDS ORDERED: MAGNESIUM OXIDE 400 MG TAB PO SCH (10:15)
[2020-11-01] MEDS: SODIUM CHLORIDE 0.9% 1,000 ML IV SCH (11:10)
[2020-11-01 11:47] LABS: Glucose,Whole Blood 202 mg/dL (75-99)
--- NOTE | 2020-11-01 16:27 | P.DS ---
Providers Date of admission: 10/30/20 14:12 Expected date of discharge: 11/01/20 Attending physician: Hugo Aparicio MD Consults: 10/30/20 16:33 Consult Physician Routine Consulting Provider: Chanel Ray Consult Reason/Comments: Covid 19 Do you want consulting provider notified?: Yes Primary care physician: Dede Roy Hospital Course: Final Diagnosis -Covid 19 infection with gastritis secondary to Covid 19 infection -Hypovolemic hyponatremia from nausea vomiting leading to generalized weakness . Improved now -Type 2 diabetes mellitus -Asymptomatic bacteriuria will not require any antibiotics -History of primary peritoneal cancer: Patient's maintenance limpraza Discharge disposition Patient is being discharged in a stable condition with guarded prognosis to h ome. Patient will follow-up with Dr. Roy in the outpatient setting upon discharge. She will also follow-up with her oncologist and Mian. Continue with dexamethasone along with vitamin and zinc supplements. Total time taken is greater than 35 minutes. Hospital course Patient is pleasant 65-year-old female came in with complaints of multiple episodes of nausea vomiting and fever patient was diagnosed with covid 19, recently patient's symptoms started on October 19. Patient was having some mild cough and mild shortness of breath beyond which patient the symptoms are mostly gastrointestinal, including nausea vomiting and diarrhea. 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 She denied any dysuria. Patient is on anticoagulation at home with Xarelto which I'm assuming for DVT although need to verify from the patient. 10/31/2020 Patient the sodium went up quite past but I believe the first sodium was not accurate and a lab error. We'll cut down the fluids to 75 mL per hour. Patient is presently on Remdesivir. Patient is bit hypoxic today without oxygen. 11/01/2020 Patient is seen and evaluated in follow-up with no acute overnight issues. Patient has been up and walking and denies any worsening shortness of breath. Patient is maintained on room air and not requiring oxygen. Patient would like to go home. Currently no reports of chest pain, shortness of breath, or palpitations. Patient is afebrile. No reports of nausea or vomiting and patient is tolerating diet. Patient will be discharged home today. On exam vital signs are stable. Cardio S1, S2 are muffled. Respiratory system shows diminished breath sounds at the bases with no wheezing or rhonchi noted. Abdomen is soft and obese, and nontender. Nervous system shows no focal deficits. Please refer to medication reconciliation sheet for a list of medications. Patient Condition at Discharge: Stable Plan - Discharge Summary New Discharge Prescriptions: New Dexamethasone 6 mg PO DAILY 8 Days #8 tablet hydroCHLOROthiazide [Hydrodiuril] 25 mg PO DAILY tab Propranolol [Inderal] 40 mg PO DAILY tab Magnesium Oxide [Mag-Ox] 400 mg PO DAILY tab Zinc Sulfate [Orazinc] 220 mg PO DAILY 30 Days #30 cap Acetaminophen Tab [Tylenol] 650 mg PO Q4HR PRN tab PRN Reason: Fever And/ Or Pain Ascorbic Acid [Vitamin C] 500 mg PO BID 30 Days #30 tab Continue metFORMIN HCL 1,000 mg PO BID Potassium Chloride [Klor-Con Packets] 20 meq PO DAILY polyethylene glycoL 3350 [Miralax] 17 gm PO DAILY PRN PRN Reason: Constipation Multivitamins, Thera [Multivitamin (formulary)] 1 tab PO DAILY Magnesium Malate 625mg 1 tab PO DAILY Cholecalciferol (Vitamin D3) [Vitamin D3 (5000 Iu)] 125 mcg PO DAILY Famotidine [Pepcid] 40 mg PO BID-W/MEALS Docusate Sodium [Dok] 200 mg PO BID PRN PRN Reason: Constipation Rivaroxaban [Xarelto] 20 mg PO DAILY Olaparib [Lynparza] 300 mg PO BID Bovine Thyroid Health 130mg 1 - 2 tab PO DAILY Ondansetron HCl [Zofran] 4 mg PO Q6H PRN PRN Reason: Nausea And Vomiting Discharge Medication List Potassium Chloride [Klor-Con Packets] 20 meq PO DAILY 01/01/17 [History] metFORMIN HCL 1,000 mg PO BID 01/01/17 [History] Bovine Thyroid Health 130mg 1 - 2 tab PO DAILY 10/30/20 [History] Cholecalciferol (Vitamin D3) [Vitamin D3 (5000 Iu)] 125 mcg PO DAILY 10/30/20 [History] Docusate Sodium [Dok] 200 mg PO BID PRN 10/30/20 [History] Famotidine [Pepcid] 40 mg PO BID-W/MEALS 10/30/20 [History] Magnesium Malate 625mg 1 tab PO DAILY 10/30/20 [History] Multivitamins, Thera [Multivitamin (formulary)] 1 tab PO DAILY 10/30/20 [History] Olaparib [Lynparza] 300 mg PO BID 10/30/20 [History] Ondansetron HCl [Zofran] 4 mg PO Q6H PRN 10/30/20 [History] Rivaroxaban [Xarelto] 20 mg PO DAILY 10/30/20 [History] polyethylene glycoL 3350 [Miralax] 17 gm PO DAILY PRN 10/30/20 [History] Acetaminophen Tab [Tylenol] 650 mg PO Q4HR PRN tab 11/01/20 [Rx] Ascorbic Acid [Vitamin C] 500 mg PO BID 30 Days #30 tab 11/01/20 [Rx] Dexamethasone 6 mg PO DAILY 8 Days #8 tablet 11/01/20 [Rx] Magnesium Oxide [Mag-Ox] 400 mg PO DAILY tab 11/01/20 [Rx] Propranolol [Inderal] 40 mg PO DAILY tab 11/01/20 [Rx] Zinc Sulfate [Orazinc] 220 mg PO DAILY 30 Days #30 cap 11/01/20 [Rx] hydroCHLOROthiazide [Hydrodiuril] 25 mg PO DAILY tab 11/01/20 [Rx] Follow up Appointment(s)/Referral(s): Dede Roy MD [Primary Care Provider] - 1-2 days (Office closed on Wednesday. Please call office Wednesday for follow-up appointment.) Patient Instructions/Handouts: Coronavirus Disease 2019 (COVID-19) Activity/Diet/Wound Care/Special Instructions: Activity Limited until follow-up Follow-up with primary care provider upon discharge Continue with oncology at [facility] Continue to encourage rest and fluids Monitor for fever and treat with Tylenol Continue to social distance, wear a mask, frequent handwashing Continue current diet Continue with dexamethasone to complete the course Discharge Disposition: HOME SELF-CARE
--- NOTE | 2020-11-01 16:42 | PN ---
PROGRESS NOTE DATE OF SERVICE: 11/01/2020 REASON FOR FOLLOWUP: COVID-19 infection. INTERVAL HISTORY: The patient was seen on rounds this morning. The patient has been afebrile. The patient has been breathing comfortably on room air. Denies having any chest pain or shortness of breath. Occasional cough. No abdominal pain or diarrhea. PHYSICAL EXAMINATION: Blood pressure 158/77, pulse 87, temperature 97.6. She is 95% on room air. General description is an elderly female up in the bed in no distress. RESPIRATORY SYSTEM: Unlabored breathing, decreased intensity of breath sounds. No wheeze. HEART: S1, S2. Regular rate and rhythm. ABDOMEN: Soft. No tenderness. LABS: No new labs have been obtained today. Culture negative. DIAGNOSTIC IMPRESSION AND PLAN: Patient with acute COVID-19 infection who has shown overall clinical improvement to the Remdesivir, dexamethasone, Lovenox and multivitamin. May consider a short course of oral multivitamin and zinc on discharge and close outpatient followup. MMODL / IJN: [id number] /
== END 2020-11-01 13:40 | disposition home or self-care (01) | DRG 177 ==
LOC: EC 12:06 → 4SSUR 14:12
PROVIDERS: ADMIT Internal Medicine; ATTEND Internal Medicine
PROC: XW033E5 Introduction of Remdesivir Anti-infective into Peripheral Vein, Percutaneous Approach, New Technology Group 5 (ICD-10-PCS; principal; 2020-10-30)
DX: U07.1 COVID-19 (principal); J12.82 Pneumonia due to coronavirus disease 2019; C48.2 Malignant neoplasm of peritoneum, unspecified; E87.1 Hypo-osmolality and hyponatremia; A08.39 Other viral enteritis; I48.91 Unspecified atrial fibrillation; E86.0 Dehydration; I10 Essential (primary) hypertension; K21.9 Gastro-esophageal reflux disease without esophagitis; K22.70 Barrett's esophagus without dysplasia; E11.9 Type 2 diabetes mellitus without complications; R82.71 Bacteriuria; D72.810 Lymphocytopenia; R09.02 Hypoxemia; E86.1 Hypovolemia; E66.9 Obesity, unspecified; H91.90 Unspecified hearing loss, unspecified ear; Z68.33 Body mass index [BMI] 33.0-33.9, adult; Z79.01 Long term (current) use of anticoagulants; Z79.84 Long term (current) use of oral hypoglycemic drugs; Z79.899 Other long term (current) drug therapy; Z86.718 Personal history of other venous thrombosis and embolism; Z90.49 Acquired absence of other specified parts of digestive tract; Z90.710 Acquired absence of both cervix and uterus; Z90.13 Acquired absence of bilateral breasts and nipples; Z80.42 Family history of malignant neoplasm of prostate; Z80.8 Family history of malignant neoplasm of other organs or systems; Z86.010 Personal history of colon polyps; Z80.3 Family history of malignant neoplasm of breast
CPT/HCPCS: 36415; 71045; 71046; 80053; 81001; 82550; 83605; 83615; 83690; 84443; 84484; 85025; 85379; 86140; 87040; 87635; 93005; 96361; 96374; 99285

== ENCOUNTER → 2022-11-04 | Outpatient (CLI) | payer MEDICARE, BC ==
[2022-11-04 10:14] LABS: African American GFR (CKD) >90 (>60 ml/min/1.73 sqM); Blood Urea Nitrogen 23 mg/dL (7-17); Non-African American GFR(CKD) >90 (>60 ml/min/1.73 sqM)
--- NOTE | 2022-11-04 10:57 | CT ---
EXAMINATION TYPE: CT brain wo/w con DATE OF EXAM: 11/04/2022 COMPARISON: None. HISTORY: VARNER/sinus CT DLP: [id number] mGycm Automated exposure control for dose reduction was used. CONTRAST: CT scan of the head is performed without and with IV Contrast, patient injected with 70 mL of Isovue 300. FINDINGS: Noncontrast images show no acute intracranial hemorrhage or midline shift. The ventricles and sulci are within normal limits in size for patient's age. Mild low attenuation in the periventricular white matter is consistent with chronic small vessel ischemic change in patient of this age. The globes ar e intact bilaterally. There is some dependent fluid in the left ethmoid sinus. There is [id number] ate mucosal thickening and some dependent fluid in the right maxillary sinus. There is eccentric muco juana thickening anterior inferior left maxillary sinus and tiny dependent fluid in the inferior left f rontal sinus. Postcontrast images show no suspicious enhancing intraparenchymal mass dominant right v ertebral artery filling the basilar artery is incidentally noted. IMPRESSION: Acute on chronic paranasal sinus disease as detailed above. No abnormal enhancement is s een.
== END | disposition home or self-care (01) ==
LOC: RADCTMAIN 09:35
PROVIDERS: ATTEND Internal Medicine
DX: J34.89 Other specified disorders of nose and nasal sinuses (principal); R51.9 Headache, unspecified
CPT/HCPCS: 82565; 84520; 70470; 36415; Q9967

== ENCOUNTER → 2024-10-12 | Outpatient (CLI) | payer MEDICARE, BC ==
--- NOTE | 2024-10-13 07:56 | BD ---
EXAMINATION TYPE: Axial Bone Density DATE OF EXAM: 10/12/2024 CLINICAL HISTORY: 69 years old Female. ICD-10 CODE: N95.8 OTHER SPECIFIED MENOPAUSAL AND PERIMENOPAU BHARATHI , Additional History: Height: 63 Weight: 198 FRAX RISK QUESTIONS: Family History (Parent hip fracture): no History of Fracture in Adulthood: no Secondary Osteoporosis: yes 3. Menopause before 45: yes RISK FACTORS HISTORY OF: Surgery to Spine/Hip(right/left)/Wrist (right/left): no MEDICATIONS: Thyroid Medications: no Osteoporosis Medications: no EXAM MEASUREMENTS: Bone mineral densitometry was performed using the [employer] System. Bone mineral density as measured about the Lumbar spine is: ----- L1-L4(G/cm2): 1.103 T Score Values are as follows: ----- L1: -1.8 ----- L2: -0.8 ----- L3: -0.1 ----- L4: -0.5 ----- L1-L4: -0.6 Z Score Values are as follows: ----- L1: -0.9 ----- L2: 0.0 ----- L3: 0.7 ----- L4: 0.4 ----- L1-L4: 0.2 Bone mineral density has: Increased 4.2% since study of: 01/25/2006 Bone mineral density about the R hip (g/cm2): 0.903 Bone mineral density about the L hip (g/cm2): 0.906 T Score values are as follows: -----R Neck: -1.5 -----L Neck: -1.4 -----R Total: -0.8 -----L Total: -0.8 Z Score values are as follows: -----R Neck: -0.3 -----L Neck: -0.2 -----R Total: 0.1 -----L Total: 0.1 Bone mineral density has: Decreased -6.3% since study of: 01/25/2006 FRAX%s: The graph provided illustrates a 9.3% chance for a major osteoporotic fx and a 1.3% chance fo r the hips probability for fx in 10 years time. IMPRESSION: Osteopenia (T Score between -2.5 and -1). There is slightly increased risk of fracture and the patient may be considered for treatment. Re-Screen 2-5 years. NOTE: T-SCORE=SD OF THE YOUNG ADULT MEAN. [facility], , 10/13/2024 7:53 AM
== END | disposition home or self-care (01) ==
LOC: RADBDWWP 14:51
PROVIDERS: ATTEND Internal Medicine
DX: M85.89 Other specified disorders of bone density and structure, multiple sites (principal); N95.8 Other specified menopausal and perimenopausal disorders; Z78.0 Asymptomatic menopausal state
CPT/HCPCS: 77080